=== PATIENT | male | born 1965 | race Two or more races ===

== ENCOUNTER 2018-10-05 15:16 | Emergency (ER) | payer MEDICARE, MEDICAID ==
[~2018-10-05] VITALS: Ht 182.9 cm; Wt 82.1 kg
[2018-10-05 16:36] VITALS: BP 144/102
[2018-10-05] MEDS ORDERED: TETANUS-DIPTH-ACEL PERTUSSIS 0.5ML SYRG IM ONE (17:15)
== END 2018-10-05 17:52 | disposition home or self-care (01) ==
LOC: ER 15:16
DX: S01.81XA Laceration without foreign body of other part of head, initial encounter (principal); S71.031A Puncture wound without foreign body, right hip, initial encounter; F17.210 Nicotine dependence, cigarettes, uncomplicated; I10 Essential (primary) hypertension; W54.0XXA Bitten by dog, initial encounter; Y93.89 Activity, other specified; Y92.89 Other specified places as the place of occurrence of the external cause; Y99.8 Other external cause status
CPT/HCPCS: 12013; 90471; 90715